=== PATIENT | female | born 1995 | race Caucasian/White ===

== ENCOUNTER 2016-07-30 05:38 | Day surgery (SDC) | payer OTHER ==
[~2016-07-30 05:38] MED LIST: CLINDAMYCIN 900 MG/D5W RTU 50 ML IV PRN; LACTATED RINGERS 1000 ML IV PRN; LIDOCAINE 0.5% INJ-PF (5 MG/ML) 50 ML SDV SUBCUT PRN
[2016-07-30 07:13] LABS: HEMATOCRIT 38.7 % (36.0-47.0); HEMOGLOBIN 13.4 g/dL (12.0-15.5); HGB HCT DIFFERENCE 1.5; MEAN CORPUSCULAR HEMOGLOBIN 29.8 pg (27.0-33.4); MEAN CORPUSCULAR HGB CONC 34.7 g/dL (32.0-36.0); MEAN CORPUSCULAR VOLUME 86 fl (80-97); RED BLOOD COUNT 4.51 10^6/uL (3.72-5.28); RED CELL DISTRIBUTION WIDTH 12.8 % (11.5-14.0); WHITE BLOOD COUNT 4.7 10^3/uL (4.0-10.5)
[2016-07-30] MEDS ORDERED: MIDAZOLAM 2 MG/2 ML INJ ONE (07:21)
[2016-07-30] MEDS ORDERED: PROPOFOL INJ 200 MG/20 ML VIAL IV ONE (07:21)
[2016-07-30] MEDS ORDERED: MORPHINE SULFATE 10 MG/ML INJ ONE ×2 (07:21→15:16)
[2016-07-30] MEDS ORDERED: DEXMEDETOMIDINE INJ 80 MCG/20 ML VIAL IV ONE (07:22)
[2016-07-30] MEDS ORDERED: FENTANYL CITRATE INJ/PF 250 MCG/5 ML AMPULE ONE (07:22)
[2016-07-30] MEDS ORDERED: METHYLENE BLUE/PF INJ 100 MG/10 ML SDV ONE (07:26)
[2016-07-30] MEDS ORDERED: MINERAL OIL (STERILE) 10 ML VIAL ONE (07:26)
[2016-07-30] MEDS ORDERED: BUPIVACAINE HCL 0.5%-EPI 1:200000 INJ/PF 30 ML VIAL ONE (07:27)
[2016-07-30] MEDS ORDERED: MORPHINE SULFATE 10 MG/ML INJ IV PRN (09:29)
[2016-07-30] MEDS ORDERED: FENTANYL CITRATE INJ/PF 100 MCG/2 ML AMPUL IV PRN ×3 (09:29)
[2016-07-30] MEDS ORDERED: DIPHENHYDRAMINE HCL 50 MG/ML VIAL IV PRN (09:29)
[2016-07-30] MEDS ORDERED: PROMETHAZINE HCL INJ 25 MG/1 ML VIAL IV PRN ×2 (09:29)
[2016-07-30] MEDS ORDERED: MEPERIDINE HCL/PF INJ 25 MG/1 ML DISP.SYRIN IV PRN (09:29)
[2016-07-30] MEDS ORDERED: OXYCODONE-ACETAMINOPHEN 5-325 MG TABLET PO PRN ×2 (09:29)
[2016-07-30] MEDS ORDERED: SUCCINYLCHOLINE CHLORIDE INJ 200 MG/10 ML VIAL ONE (10:45)
[2016-07-30] MEDS ORDERED: GLYCOPYRROLATE INJ 0.4 MG/2 ML VIAL ONE (10:45)
[2016-07-30] MEDS ORDERED: NEOSTIGMINE METHYLSULFATE 10 MG/10 ML VIAL ONE (10:45)
[2016-07-30] MEDS ORDERED: KETOROLAC TROMETHAMINE 60 MG/2 ML SDV ONE (10:45)
[2016-07-30] MEDS ORDERED: ROCURONIUM BROMIDE INJ 50 MG/5 ML VIAL IV ONE (10:45)
[2016-07-30] MEDS ORDERED: DEXAMETHASONE SOD PHOSPHATE INJ 4 MG/1 ML VIAL ONE (10:45)
[2016-07-30] MEDS ORDERED: LIDOCAINE 2% INJ-PF (20 MG/ML) 10 ML AMPUL ONE (10:45)
[2016-07-30] MEDS ORDERED: CLINDAMYCIN PHOSPHATE INJ 300 MG/2 ML SDV ONE (15:04)
[2016-07-30] MEDS ORDERED: ACETAMINOPHEN 100 ML IV ONE (15:15)
[2016-07-30] MEDS ORDERED: ONDANSETRON HCL INJ/PF 4 MG/2 ML SDV ONE (15:15)
[2016-07-30] MEDS ORDERED: HYDROMORPHONE HCL INJ/PF 2 MG/ML AMPULE IV PRN (16:27)
[2016-07-30] MEDS ORDERED: ONDANSETRON HCL INJ/PF 4 MG/2 ML SDV IV PRN (16:27)
[2016-07-30 18:15] VITALS: BP 102/69
--- NOTE | 2016-07-30 18:58 | OPERATIVE REPORT E ---
Operative Report NAME: PAT EMERSON : 1995 AGE: 20Y DATE OF SURGERY: 07/30/2016 ROOM: OR PREOPERATIVE DIAGNOSIS: Left congenital ureteropelvic junction obstruction, recurrent. POSTOPERATIVE DIAGNOSIS: Left congenital ureteropelvic junction obstruction, recurrent. OPERATION: 1. Cystoscopy with left ureteral stent placement. 2. Left robotic-assisted laparoscopic pyeloplasty. SURGEON: CARLINE ROPER D.O. HARM REDUCTION WORKER: MARVA HARRELL M.D. ANESTHESIA: General. IV FLUIDS: 3200 mL lactated Ringer's. ESTIMATED BLOOD LOSS: 1500 mL. URINE OUTPUT: 1 L. IMPLANT: 6-Jamaican x 24 cm ureteral stent in the left ureter. DRAINS: 1. 10-Jamaican round Jcarlos-Mckeon drain in the left lower quadrant. 2. 16-Jamaican Lambert catheter. SPECIMENS: Left ureteropelvic junction. FINDINGS: Significant scarring of the mesentery to the underlying retroperitoneum. Difficult dissection of ureter and kidney. Hydronephrotic kidney. No evidence of crossing vessel but transition point at UPJ to the proximal ureter. INDICATIONS FOR PROCEDURE: The patient is a 20-year-old female with history of left-sided UPJ obstruction as an infant with pyeloplasty done at 2 years of age. She had been doing fine until approximately 2 years ago when she started having some intermittent flank pain. Approximately 6 months ago, she started developing recurrent urinary tract infections. She had a CT scan that showed very hydronephrotic left kidney with possible crossing vessel to the lower pole, and then she had a Mag-3 study which was consistent with obstruction. DESCRIPTION OF PROCEDURE: The patient was met in the preoperative holding area. Risks, benefits, and side effects of cystoscopy with left ureteral stent placement and robotic-assisted laparoscopic pyeloplasty were again reiterated to the patient. She consented to proceed. She was brought to the operative theater and placed on the table in supine position where general anesthesia was induced. The patient was then placed in dorsal lithotomy position and sterilely prepped and draped in the usual fashion. Timeout was performed to insure proper patient, proper procedure, proper laterality of being the left side, and that preoperative antibiotics administered. With all in agreement, we proceeded. A 22-Jamaican rigid cystoscope was placed through the urethra to the level of the bladder. Cystoscopy was performed revealing no evidence of mucosal lesion. The left ureteral orifice was intubated a sensor wire and then a 6-Jamaican open-ended catheter. Retrograde pyelogram was performed revealing a hydronephrotic kidney with transition point at the UPJ. We then replaced the sensor wire through the open-ended catheter which was then removed, and a 6-Jamaican x 24 cm ureteral stent was placed over this to the level of the renal pelvis. The sensor wire was slowly removed revealing good curl of the stent in the renal pelvis fluoroscopically and fully removed revealing good curl in the bladder cystoscopically, and then the wires were removed. A Lambert catheter was then placed to drain the bladder. This concluded this portion of the procedure. The patient was then taking out of lithotomy and placed in a modified flank position with the right side down and the left side up. She was placed on a beanbag and secured in this position with tape and meticulously had all pressure points padded. She was then again sterilely prepped and draped in the usual fashion, and a second timeout was done to insure proper patient, proper procedure, proper laterality, and that proper radiographs had been reviewed. With all in agreement, we proceeded. We began by placing Veress needle into the umbilicus. Once it was inserted, a syringe was used to aspirate and insure no return of air and flushed with fluid which easily dripped into the abdomen. We then attached our insufflation which showed a low opening pressure at 3 mmHg. The abdomen was then insufflated. Once this was completed, we marked our trocar sites. We began by placing a 12 mm lpn or medical assistant trocar approximately 10 cm below the umbilicus with a 5 mm Optiview trocar. Once the 5 mm trocar was in, we placed our camera port in the umbilicus as well as 12 mm port. We visualized the trocar being placed without any evidence of underlying damage. We then replaced the 5 mm lpn or medical assistant port with a 12 mm port and then placed our two 8 mm robotic arm trocars, one just 2 cm below the costal margin and then a second approximately 2-3 cm superior and medial to the iliac crest. The robot was then brought onto the field and docked, and the procedure begun. We began by reflecting the white line of Toldt with electrocautery. Once this was completed, we reflected the descending colon medially. When this was completed, there was seen to be an abundance of remaining mesenteric vessels that are also attempted to be reflected. This was all severely scarred due to her prior pyeloplasty. We then proceeded with identification of the ureter. This was identified and then isolated with a combination of blunt dissection and electrocautery, and I dissected cranially toward the renal pelvis. Once this was taken towards the renal pelvis, the kidney had been reflected medially. Following lysis of the mesenteric adhesions. In order to release the adhesions overlying the renal pelvis, we dissected the overlying Gerota's fascia and the adherent mesentery with a combination of blunt dissection and electrocautery. This was a very meticulous process, and we were after some time able to identify the renal vessels. There was no evidence of a crossing vessel. The only vessel identified was the renal hilum, the renal artery and vein with the dilate renal pelvis posterior to this. There was a transition point identified at the UPJ where we planned for our pyeloplasty. We placed a stay stitch of 3-0 Vicryl through the abdominal wall with the aid of a Richard needle and into the anterior portion of the renal pelvis. We incised the anterior renal pelvis with our scissors and then continued with our spatulation of the ureter laterally. We then transected the UPJ and excised the stenotic portion. This was sent from the field for pathology. The preplaced stent was identified and not transected. We then used 4-0 Vicryl suture and proceeded with our posterior anastomosis. This was completed cranially to caudally with a running stitch. Once the posterior wall was completed, we then ran the anterior wall again with a running 4-0 Vicryl suture from caudally to cranially. Once this was half completed, the ureteral stent was placed inside the renal pelvis and then the anastomosis completed. Once completed, we performed nephropexy as the extensive dissection caused the kidney to be released from the lateral wall attachments. The Gerota's fascia was reapproximated to the lateral wall with 2 interrupted 3-0 Vicryl sutures securing the kidney in the renal fossa in its orthotopic position. Once this was completed, we placed a 10-Jamaican round J-P drain in the left pericolic gutter exiting through the port site near the iliac crest. Inspection of the peritoneal cavity showed no evidence of hemorrhage. The robot was dedocked and all instruments removed. We then closed the fascial defects in the 12 mm port sites with interrupted 0 Vicryl sutures. Subcutaneous tissues were closed with interrupted 3-0 Vicryl sutures and the skin closed with 4-0 Monocryl in a subcuticular fashion. The drain was secured with a 2-0 Prolene suture, and sponge and dressing were placed. The drain was left to bulb suction. All remaining skin incisions were then sealed with Dermabond. The patient was awakened and taken to PACU in stable condition. The patient tolerated the procedure well. At the conclusion of the case, all instrument, needle, and sponge counts were correct. DICTATING PHYSICIAN: CARLINE ROPER D.O. [id number] PHY#: [id number] ID: [id number] JOB#: [id number] ACCT: [id number] cc:CARLINE ROPER D.O. >
== END 2016-07-30 18:00 ==
LOC: INOR 05:38 → OROUT 05:38 → UNDOADMIN 05:38 → EDSTATUS 07:30 → OROUT 18:00 → UNDODISIN 18:00
PROVIDERS: ATTEND Surgery
PROC: 0TJ Urinary System, Inspection (ICD-10-PCS; 2016-07-30)
PROC: 0T7D8DZ Dilation of Urethra with Intraluminal Device, Via Natural or Artificial Opening Endoscopic (ICD-10-PCS; principal; 2016-07-30 07:30)
DX: Q62.11 Congenital occlusion of ureteropelvic junction (principal); Z88.1 Allergy status to other antibiotic agents
CPT/HCPCS: 86900; 86901; 36415; 86850; 85027; 81025; 88305 ×2; 74420; 52282; 50544; C1769; C1758; C2617; Q9967; J2250; J3490 ×5; J1100; J1885; J3010; J2270; J1170; J0330; J2405; J2704; J0131; 862; Q9968

== ENCOUNTER 2019-06-09 02:33 | Inpatient (IN) | payer BC, OTHER ==
[2019-06-09] MEDS ORDERED: RINGERS SOLUTION,LACTATED 1,000 ML IV PRN (02:44)
[2019-06-09] MEDS ORDERED: RINGERS SOLUTION,LACTATED 1,000 ML IV ONE (02:44)
[2019-06-09] MEDS ORDERED: LIDOCAINE 1% INJ-PF (10 MG/ML) 30 ML SDV ONE (02:57)
[2019-06-09] MEDS ORDERED: MISOPROSTOL 0.2 MG TABLET ONE (02:57)
[2019-06-09] MEDS ORDERED: OXYTOCIN 10 UNIT/ML VIAL ONE (02:57)
[2019-06-09] MEDS ORDERED: OXYTOCIN/NORMAL SALINE 20 UNIT/1,000 ML RTUINJ ONE (02:57)
[2019-06-09 03:09] LABS: ABSOLUTE EOSINOPHILS # (AUTO) 0.1 10^3/uL (0.0-0.6); ABSOLUTE LYMPHOCYTES (AUTO) 2.5 10^3/uL (0.5-4.7); ABSOLUTE MONOCYTES (AUTO) 1.2 10^3/uL (0.1-1.4); ABSOLUTE NEUT (AUTO) 11.8 10^3/uL (1.7-8.2); BASOPHILS % (AUTO) 0.3 % (0-2); EOSINOPHILS % (AUTO) 0.3 % (0-6); HEMATOCRIT 32.8 % (36.0-47.0); MEAN CORPUSCULAR HEMOGLOBIN 27.9 pg (27.0-33.4); MEAN CORPUSCULAR HGB CONC 33.6 g/dL (32.0-36.0); MEAN CORPUSCULAR VOLUME 83 fl (80-97); PLATELET COUNT 171 10^3/uL (150-450); RED BLOOD COUNT 3.95 10^6/uL (3.72-5.28); RED CELL DISTRIBUTION WIDTH 16.3 % (11.5-14.0); SEGMENTED NEUTROPHILS % (AUTO) 75.4 % (42-78); TOTAL CELLS COUNTED % (AUTO) 100 %; WHITE BLOOD COUNT 15.7 10^3/uL (4.0-10.5)
[2019-06-09 03:14] LABS: APPEARANCE,URINE CLOUDY; BILIRUBIN,URINE NEGATIVE (NEGATIVE); COLOR,URINE YELLOW; GLUCOSE, URINE NEGATIVE (NEGATIVE); KETONES,URINE NEGATIVE (NEGATIVE); LEUKOCYTE ESTERASE,URINE LARGE (NEGATIVE); NITRITE,URINE NEGATIVE (NEGATIVE); PROTEIN,URINE NEGATIVE (NEGATIVE); URINE SPECIFIC GRAVITY 1.008; UROBILINOGEN,URINE NEGATIVE mg/dL (<2.0)
[2019-06-09 03:37] LABS: URINE AMPHETAMINES SCREEN NEGATIVE; URINE BARBITURATES SCREEN NEGATIVE; URINE BENZODIAZEPINES SCREEN NEGATIVE; URINE COCAINE SCREEN NEGATIVE; URINE MARIJUANA (THC) SCREEN NEGATIVE; URINE METHADONE SCREEN NEGATIVE; URINE PHENCYCLIDINE SCREEN NEGATIVE
--- NOTE | 2019-06-09 03:58 | Admission Physical ---
Datetime Report Generated by CPN: 06/09/2019 03:57 CURRENT ADMISSION Chief Complaint: Uterine Contractions Indication for Induction: Not Applicable Admit Impression : Term, Intrauterine ; Active Labor Admit Plan: Admit to Unit; Initiate Labor Protocol ALLERGIES Medication Allergies: No Medication Allergies: amoxicillin trihydrate/Hives (07/15/2016); Potassium Clavulanate */Hives (07/15/2016) Latex: No Latex Allergies Food Allergies: none Environmental Allergies: none OBSTETRICAL HISTORY EDC: 06/08/2019 00:00 : 2 Para: 1 Term: 1 Livin Gestational Diabetes: No Rh Sensitization: No Incompetent Cervix: No EMILY: No Infertility: No ART Treatment: No Uterine Anomaly: No IUGR: No Hx Previous C/S: No Macrosomia: No Hx Loss/Stillborn: No PIH: No Hx : No Placenta Previa/Abruption: No Depression/PP Depression: No PTL/PROM: No Post Hemorrhage: No Current Procedures: Ultrasound; NST Obstetrical History Comments: G1 - 2013 baby boy IOL 37.5 cleft lip/palate G2 - current SEE RECORDS Alcohol: No Marijuana : No Cocaine: No Other Illicit Drugs: No Cigarettes: Never Smoker. 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 Heart Disease: No Hosp/Surgery: Yes Autoimmune Disorder: No Anesthetic Complications: No Kidney Disease: Yes Abnormal Pap Smear: No Neuro/Epilepsy: No Psychiatric Disorders: No Other Medical Diseases: No Hepatitis/Liver Disease: No Significant Family History: No Varicosities/Phlebitis: No Trauma/Violence : No Thyroid Dysfunction: No Medical History Comments: hydronephrosis, 2 pyloplasties, 1 stent placed left UPJ obstruction anemia, 2 doses injectefor INFECTIOUS HISTORY Gonorrhea: No Genital Herpes: No Chlamydia: No Tuberculosis: No Syphilis: No Hepatitis: No HIV/AIDS Exposure: No Rash or Viral Illness: No HPV: No PHYSICAL EXAM General: Normal HEENT: Normal Neurologic: Normal Thyroid: Normal Heart: Normal Lungs: Normal Breast: Normal Back: Normal Abdomen: Normal Genitourinary Exam: Normal Extremities: Normal DTRs: Normal Pelvic Type: Adequate Vital Signs: Reviewed; Within Normal Limits VAGINAL EXAM Dilatation: 5 Effacement: 90 Station: -1 MEMBRANES Pooling: Negative Membranes: Intact FETUS A EGA: 40.1 Monitoring: External US FHR- Baseline: 140 Variability: Moderate 6-25bpm Accelerations: 15X15 Decelerations: None FHR Category: Category I Estimated Weight (gm): 3500 Presentation: Vertex PLANS FOR LABOR AND DELIVERY Labor and Delivery: None Pain Management: Epidural Feeding Preference: Breast Benefit of Breast Feed Discussed: Yes Circumcision: N/A INFORMED CONSENT Signature: with User ID: [email or web address]
[2019-06-09] MEDS ORDERED: PROMETHAZINE HCL 25 MG TABLET PO PRN (04:01)
[2019-06-09] MEDS ORDERED: DIBUCAINE 1% OINTMENT 28 GM TP PRN (04:01)
[2019-06-09] MEDS ORDERED: PROMETHAZINE HCL INJ 25 MG/1 ML VIAL IV PRN (04:01)
[2019-06-09] MEDS ORDERED: ZOLPIDEM TARTRATE 5 MG TABLET PO PRN (04:01)
[2019-06-09] MEDS ORDERED: DIPHENHYDRAMINE HCL 25 MG CAPSULE PO PRN (04:01)
[2019-06-09] MEDS ORDERED: MAGNESIUM HYDROXIDE SUSP 30 ML UDCUP PO PRN (04:01)
[2019-06-09] MEDS ORDERED: GLYCERIN/WITCH HAZEL LEAF 1 EACH MED..WIPE TP PRN (04:01)
[2019-06-09] MEDS ORDERED: ACETAMINOPHEN WITH CODEINE #3 TABLET PO PRN ×2 (04:01)
[2019-06-09] MEDS ORDERED: OXYTOCIN/NORMAL SALINE 20 UNIT/1,000 ML RTUINJ IV PRN (04:01)
[2019-06-09] MEDS ORDERED: PSEUDOEPHEDRINE HCL 30 MG TABLET PO PRN (04:01)
[2019-06-09] MEDS ORDERED: NA PHOS,M-B/NA PHOS,DI-BA (ADULT) 133 ML ENEMA PR PRN (04:01)
[2019-06-09] MEDS ORDERED: MEASLES,MUMPS&RUBELLA VACC/PF 0.5 ML VIAL SUBCUT PRN (04:01)
[2019-06-09] MEDS ORDERED: BENZOCAINE/MENTHOL AEROSOL SPRAY 56 ML TOP PRN (04:01)
[2019-06-09] MEDS ORDERED: ACETAMINOPHEN 650 MG SUPP.RECT PR PRN (04:01)
[2019-06-09] MEDS ORDERED: DIPH/PERTUSS(ACELL)/TETANUS VAC/PF 0.5 ML SYR (>=10YO) IM PRN (04:01)
[2019-06-09] MEDS ORDERED: PROMETHAZINE HCL 25 MG SUPP.RECT PR PRN (04:01)
[2019-06-09] MEDS ORDERED: ACETAMINOPHEN WITH CODEINE #3 TABLET ONE (04:03)
[2019-06-09] MEDS ORDERED: IBUPROFEN 800 MG TABLET ONE (04:03)
[2019-06-09] MEDS: IBUPROFEN 800 MG TABLET PO SCH ×3 (05:46→21:53)
[2019-06-09] MEDS ORDERED: METHYLERGONOVINE MALEATE INJ/PF 0.2 MG/1 ML AMPULE ONE (05:49)
--- NOTE | 2019-06-09 06:34 | Delivery Summary ---
Del Sum A-C Datetime Report Generated by CPN: 06/09/2019 06:33 DELIVERY PERSONNEL DELIVERY PERSONNEL: [id number] Delivery Doctor:: Jennifer Wiley MD Labor and Delivery Nurse:: Sepideh Chaudhari RNappointment specialist Nurse:: Melanie Hardin RN Nursery Nurse:: Juani Hardin RN Nursery Nurse:: Karen Randhawa RN MATERNAL INFORMATION Delivery Anesthesia: None Medications After Delivery: Pitocin Bolus-Please Comment; Methergine 0.2mg IM; Cytotec 800mcg Per Rectum/Vagina Meds After Delivery Comment: Pitocin 20 units/1000 ml NSS Estimated Blood Loss (ml): 200 Delivery QBL: 200 Maternal Complications: Precipitous Labor (<3hrs) LABOR SUMMARY EDC: 06/08/2019 00:00 No. Babies in Womb: 1 Attempted: No Labor Anesthesia: None LABOR INFORMATION Reason for Induction: Not Applicable Onset of Labor: 06/09/2019 00:00 Complete Dilatation: 06/09/2019 03:28 Oxytocin: N/A Group B Beta Strep: Negative Antibiotics # of Doses: none Steroids Given: None Reason Steroids Not Administered: Not Applicable MEMBRANES Membranes Rupture Method: Artificial Rupture of Membranes: 06/09/2019 03:32 Length of Rupture (hr): 0.27 Amniotic Fluid Color: Clear Amniotic Fluid Amount: Small Amniotic Fluid Odor: Normal STAGES OF LABOR Stage 1 hr: 3 Stage 1 min: 28 Stage 2 hr: 0 Stage 2 min: 20 Stage 3 hr: 0 Stage 3 min: 3 Total Time in Labor hr: 3 Total Time in Labor min: 51 VAGINAL DELIVERY Episiotomy: None Laceration #1: None Laceration Extension #1: N/A Laceration Repair: Not Applicable Sponge Count Correct: N/A Sharps Count Correct: N/A CSECTION DELIVERY Primary Indication: N/A Secondary Indication: N/A CSection Incidence: N/A Labor: N/A Elective: N/A CSection Incision: N/A BABY A INFORMATION Infant Delivery Date/Time: 06/09/2019 03:48 Method of Delivery: Vaginal Nurse Controlled Delivery: No Born in Route : No : N/A Forceps: N/A Vacuum Extraction: N/A Shoulder Dystocia : No PRESENTATION/POSITION BABY A Presentation: Cephalic Cephalic Presentation: Vertex Vertex Position: Right Occipital Anterior Breech Presentation: N/A PLACENTA INFORMATION BABY A Placenta Delivery Time : 06/09/2019 03:51 Placenta Method of Delivery: Spontaneous Placenta Status: Delivered SCORES BABY A Heart Rate 1 min: >100 bpm Resp Effort 1 min: Good Cry Reflex Irritability 1 min: Cough or Sneeze or Pulls Away Muscle Tone 1 min: Active Motion Color 1 min: Blue/Pale Resuscitation Effort 1 min: Tactile Stimulation SCORE 1 MIN: 8 Heart Rate 5 min: >100 bpm Resp Effort 5 min: Good Cry Reflex Irritability 5 min: Cough or Sneeze or Pulls Away Muscle Tone 5 min: Active Motion Color 5 min: Body Omao, Extremities Blue Resuscitation Effort 5 min: Tactile Stimulation SCORE 5 MIN: 9 INFORMATION BABY A Gestational Age at Delivery: 40.1 Gestational Status: Full Term- 39- 40.6 Weeks Outcome : Liveborn Condition : Stable Infant Sex: Female IDENTIFICATION BABY A Verification Date/Time: 06/09/2019 04:19 ID Band Number: [id number] Mother's Name Verified: Yes Infant RN Verifying : , RN and SAlban, RN WEIGHT/LENGTH BABY A Birthweight (gm): 4030 Weight (lb): 8 Infant Weight (oz): 14 Length (in): 20.50 Length (cm): 52.07 CORD INFORMATION BABY A No. Cord Vessels: 3 Nuchal Cord : Around Neck x1, Tight Cord Blood Taken: Yes-For Eval (Mom's Blood Type - or O+) Suction: Mouth ASSESSMENT BABY A Skin to Skin: Yes Skin to Skin Time (min): 60 SIGNATURES Signature: with User ID: [email or web address]
--- NOTE | 2019-06-09 08:00 | Warning Signs in Babies ---
VOD Warning Signs Datetime Report Generated by [facility]: 06/09/2019 08:00 VOD#608 -Warning Signs in Babies: Viewed with Parent(s)/Family (06/09/2019 07:58:Amena Rodriges RN)
[2019-06-09] MEDS ORDERED: PRENATAL VITAMIN W DHA CAPSULE PO ONE (10:41)
[2019-06-09] MEDS ORDERED: DOCUSATE SODIUM 100 MG CAPSULE ONE (10:41)
[2019-06-09] MEDS ORDERED: SENNOSIDES/DOCUSATE 8.6-50 MG 1 EACH TABLET ONE (10:41)
[2019-06-09] MEDS ORDERED: FAMOTIDINE 20 MG TABLET ONE (10:41)
[2019-06-09] MEDS ORDERED: FERROUS SULFATE 325 MG TABLET PO ONE (10:41)
[2019-06-09] MEDS: FERROUS SULFATE 325 MG TABLET PO SCH ×2 (10:50→17:09)
[2019-06-09] MEDS: PRENATAL VITAMIN W DHA CAPSULE PO SCH (10:51)
[2019-06-09] MEDS: FAMOTIDINE 20 MG TABLET PO SCH ×2 (10:52→21:53)
[2019-06-09] MEDS: DOCUSATE SODIUM 100 MG CAPSULE PO SCH ×2 (10:52→17:09)
[2019-06-09] MEDS: SENNOSIDES/DOCUSATE 8.6-50 MG 1 EACH TABLET PO SCH (10:53)
[2019-06-10] MEDS: IBUPROFEN 800 MG TABLET PO SCH ×2 (05:28→14:53)
[2019-06-10 06:32] LABS: HEMATOCRIT 31.8 % (36.0-47.0); HEMOGLOBIN 10.4 g/dL (12.0-15.5); MEAN CORPUSCULAR HEMOGLOBIN 27.4 pg (27.0-33.4); MEAN CORPUSCULAR HGB CONC 32.6 g/dL (32.0-36.0); MEAN CORPUSCULAR VOLUME 84 fl (80-97); PLATELET COUNT 156 10^3/uL (150-450); RED BLOOD COUNT 3.78 10^6/uL (3.72-5.28); RED CELL DISTRIBUTION WIDTH 17.3 % (11.5-14.0); WHITE BLOOD COUNT 14.8 10^3/uL (4.0-10.5)
[2019-06-10] MEDS: PRENATAL VITAMIN W DHA CAPSULE PO SCH (10:02)
[2019-06-10] MEDS: FERROUS SULFATE 325 MG TABLET PO SCH ×2 (10:02→17:47)
[2019-06-10] MEDS: DOCUSATE SODIUM 100 MG CAPSULE PO SCH ×2 (10:02→17:47)
[2019-06-10] MEDS: FAMOTIDINE 20 MG TABLET PO SCH (10:02)
[2019-06-10] MEDS: SENNOSIDES/DOCUSATE 8.6-50 MG 1 EACH TABLET PO SCH (10:02)
--- NOTE | 2019-06-10 12:06 | PDOC PROGRESS REPORT ---
Subjective-OB Progress Note for:: 06/10/19 Subjective: Doing well, no c/o, would like to go home, hsb at BS Physical Exam (OB) Vital Signs: Temp Pulse Resp BP Pulse Ox 97.3 F 71 18 102/60 98 06/10/19 07:27 06/10/19 07:27 06/10/19 07:27 06/10/19 07:27 06/10/19 07:27 Intake & Output 06/09/19 06/10/19 06/11/19 06:59 06:59 06:59 Intake Total 800 Balance 800 Weight 78.2 kg - PIH/Pre-Eclampsia DTR's: 1 + Clonus: Negative Headache: Absent Epigastric Pain: No Visual Changes: No - Lochia Lochia Amount: Scant < 10 ml Lochia Color: Rubra/Red - Abdomen Description: Soft, Round Hernia Present: No Fundal Description: Firm, Midline Fundal Height: u/u - u/2 Objective-Diagnostic Laboratory: 06/10/19 06:12 06/10/19 06:12 WBC 14.8 H RBC 3.78 Hgb 10.4 L Hct 31.8 L MCV 84 MCH 27.4 MCHC 32.6 RDW 17.3 H Plt Count 156 Assessment and Plan(PN) - Assessment and Plan (1) Vaginal delivery Is this a current diagnosis for this admission?: Yes - Time Spent with Patient Time with patient: Less than 15 minutes Medications reviewed and adjusted accordingly: Yes - Disposition Anticipated Discharge: Home Within: within 24 hours
--- NOTE | 2019-06-10 19:41 | PDOC DISCHARGE SUMMARY ---
Impression - Admit/DC Date/PCP Admission Date/Primary Care Provider: 06/09/19 02:48 Discharge Date: 06/10/19 - Assessment Summary: admitted in active labor and underwent uncomplicated - Additional Information Resuscitation Status: Full Code Discharge Diet: As Tolerated Discharge Activity: Activity As Tolerated Referrals: [facility] [Provider Group] Home Medications: Vits96/Iron Fum/Folic [ Tablet] 1 tab PO DAILY 06/09/19 HPI Gestational Age: 40.1 Reason(s) for Admission: Onset of Labor Procedures: None Intrapartum Procedure(s): Spontaneous Vaginal Delivery Complication(s) Note: none Hospital Course Hospital Course: admitted in labor and uncomplicated . Meets criteria for discharge on PPD1 Results Laboratory Results: WBC 14.8 10^3/uL (4.0-10.5) H 06/10/19 06:12 RBC 3.78 10^6/uL (3.72-5.28) 06/10/19 06:12 Hgb 10.4 g/dL (12.0-15.5) L 06/10/19 06:12 Hct 31.8 % (36.0-47.0) L 06/10/19 06:12 MCV 84 fl (80-97) 06/10/19 06:12 MCH 27.4 pg (27.0-33.4) 06/10/19 06:12 MCHC 32.6 g/dL (32.0-36.0) 06/10/19 06:12 RDW 17.3 % (11.5-14.0) H 06/10/19 06:12 Plt Count 156 10^3/uL (150-450) 06/10/19 06:12 Lymph % (Auto) 16.0 % (13-45) 06/09/19 02:54 [place] % (Auto) 8.0 % (3-13) 06/09/19 02:54 Eos % (Auto) 0.3 % (0-6) 06/09/19 02:54 Baso % (Auto) 0.3 % (0-2) 06/09/19 02:54 Absolute Neuts (auto) 11.8 10^3/uL (1.7-8.2) H 06/09/19 02:54 Absolute Lymphs (auto) 2.5 10^3/uL (0.5-4.7) 06/09/19 02:54 Absolute Monos (auto) 1.2 10^3/uL (0.1-1.4) 06/09/19 02:54 Absolute Eos (auto) 0.1 10^3/uL (0.0-0.6) 06/09/19 02:54 Absolute Basos (auto) 0.0 10^3/uL (0.0-0.2) 06/09/19 02:54 Seg Neutrophils % 75.4 % (42-78) 06/09/19 02:54 Urine Color YELLOW 06/09/19 02:42 Urine Appearance CLOUDY 06/09/19 02:42 Urine pH 7.0 (5.0-9.0) 06/09/19 02:42 Ur Specific [place] 1.008 06/09/19 02:42 Urine Protein NEGATIVE mg/dL (NEGATIVE) 06/09/19 02:42 Urine Glucose (UA) NEGATIVE mg/dL (NEGATIVE) 06/09/19 02:42 Urine Ketones NEGATIVE mg/dL (NEGATIVE) 06/09/19 02:42 Urine Blood SMALL (NEGATIVE) H 06/09/19 02:42 Urine Nitrite NEGATIVE (NEGATIVE) 06/09/19 02:42 Urine Bilirubin NEGATIVE (NEGATIVE) 06/09/19 02:42 Urine Urobilinogen NEGATIVE mg/dL (<2.0) 06/09/19 02:42 Ur Leukocyte Esterase LARGE (NEGATIVE) H 06/09/19 02:42 Urine Ascorbic Acid NEGATIVE (NEGATIVE) 06/09/19 02:42 Urine Opiates Screen NEGATIVE 06/09/19 02:42 Urine Methadone Screen NEGATIVE 06/09/19 02:42 Ur Barbiturates Screen NEGATIVE 06/09/19 02:42 Ur Phencyclidine Scrn NEGATIVE 06/09/19 02:42 Ur Amphetamines Screen NEGATIVE 06/09/19 02:42 U Benzodiazepines Scrn NEGATIVE 06/09/19 02:42 Urine Cocaine Screen NEGATIVE 06/09/19 02:42 U Marijuana (THC) Screen NEGATIVE 06/09/19 02:42 RPR NONREACTIVE (NONREACTIVE) 06/09/19 02:54 Blood Type O POSITIVE 06/09/19 02:54 Antibody Screen NEGATIVE 06/09/19 02:54 Plan Health Concerns: Discharge to home Time Spent: Less than 30 Minutes
[2019-06-10 19:48] VITALS: BP 118/75
== END 2019-06-10 20:46 | disposition home or self-care (01) | DRG 807 ==
LOC: LC 02:33 → LR 02:48 → 2S 11:07
PROVIDERS: ADMIT Obstetrics & Gynecology; ATTEND Obstetrics & Gynecology
PROC: 10E0XZZ Delivery of Products of Conception, External Approach (ICD-10-PCS; principal; 2019-06-09)
PROC: 10907ZC Drainage of Amniotic Fluid, Therapeutic from Products of Conception, Via Natural or Artificial Opening (ICD-10-PCS; 2019-06-09)
DX: O62.3 Precipitate labor (principal); Z37.0 Single live birth; O69.1XX0 Labor and delivery complicated by cord around neck, with compression, not applicable or unspecified; Z3A.40 40 weeks gestation of pregnancy; Z88.0 Allergy status to penicillin; Z88.8 Allergy status to other drugs, medicaments and biological substances; Z96.0 Presence of urogenital implants
CPT/HCPCS: 36415; 80307; 81005; 85025; 85027; 86592; 86850; 86900; 86901; J2210; J2590; J3490